=== PATIENT | female | born 1945 | race Caucasian/White ===

== ENCOUNTER 2023-08-01 17:05 | Emergency (ER) | payer OTHER, MEDICARE ==
[2023-08-01] MEDS ORDERED: Boostrix 0.5 ML (Tdap) VIAL (>/=7 yrs of age) ONE (17:44)
[2023-08-01] MEDS ORDERED: Cephalexin 250 MG CAP ONE (17:57)
[2023-08-01] MEDS ORDERED: Bacitracin 1 PK ONE (18:20)
== END 2023-08-01 18:48 | disposition home or self-care (01) ==
LOC: NAV ERS 17:05
DX: S00.93XA Contusion of unspecified part of head, initial encounter (principal); L89.321 Pressure ulcer of left buttock, stage 1; L89.311 Pressure ulcer of right buttock, stage 1; L89.322 Pressure ulcer of left buttock, stage 2; L89.312 Pressure ulcer of right buttock, stage 2; L03.317 Cellulitis of buttock; E11.9 Type 2 diabetes mellitus without complications; Z79.4 Long term (current) use of insulin; W19.XXXA Unspecified fall, initial encounter
CPT/HCPCS: 70450; 90471; 90715